=== PATIENT | male | born 1960 | race Caucasian/White ===

== ENCOUNTER 2020-11-09 06:36 | Day surgery (SDC) | payer OTHER ==
[2020-11-07 10:23] LABS: COVID AG,FIA SOURCE NASOPHARYNGEAL
[~2020-11-09] VITALS: Ht 170.2 cm; Wt 94.5 kg
[~2020-11-09 06:36] MED LIST: KETOROLAC TROMETHAMINE 0.5% 5 ML OPHTHALMIC SOLUTION ONE; MOXIFLOXACIN HCL 0.5% 3 ML OPHTHALMIC SOLUTION ONE; PHENYLEPHRINE HCL 2.5% 2 ML OPHTHALMIC SOLUTION ONE; RINGERS SOLUTION,LACTATED 500 ML IV ONE; SIMV-261 PO; TROPICAMIDE 1% 2 ML OPHTHALMIC SOLUTION ONE
[2020-11-09] MEDS ORDERED: LIDOCAINE/PF 1% 2 ML VIAL IM ONE (06:37)
[2020-11-09] MEDS ORDERED: CHONDR SULF A SOD/HYALURONATE 1.05 ML KIT IO ONE (06:37)
[2020-11-09] MEDS ORDERED: BALANCED SALT 15 ML OPHTHALMIC IRRIG.SOLN OD ONE (06:37)
[2020-11-09] MEDS ORDERED: POVIDONE-IODINE 10% 15 ML SOLUTION UD TP ONE (06:37)
[2020-11-09] MEDS ORDERED: EPINEPHrine 1:1,000 [1 MG/ML] AMP IM ONE (06:37)
[2020-11-09] MEDS ORDERED: HYALURONATE SOD/CHONDROITIN SOD 0.5 ML VIAL IO ONE (06:37)
[2020-11-09] MEDS ORDERED: TETRACAINE HCL/PF 0.5% 4 ML OPHTHALMIC SOLUTION OD ONE (06:37)
[2020-11-09] MEDS: PHENYLEPHRINE HCL 2.5% 2 ML OPHTHALMIC SOLUTION OD SCH ×3 (07:49→08:00)
[2020-11-09] MEDS: MOXIFLOXACIN HCL 0.5% 3 ML OPHTHALMIC SOLUTION OD SCH ×3 (07:49→08:00)
[2020-11-09] MEDS: TROPICAMIDE 1% 2 ML OPHTHALMIC SOLUTION OD SCH ×3 (07:49→08:00)
[2020-11-09] MEDS: KETOROLAC TROMETHAMINE 0.5% 5 ML OPHTHALMIC SOLUTION OD SCH ×3 (07:49→08:00)
[2020-11-09] MEDS ORDERED: MIDAZOLAM HCL 2 MG/2 ML VIAL IVP ONE (12:00)
[2020-11-09] MEDS ORDERED: FentaNYL CITRATE PF 100 MCG/2 ML VIAL IVP ONE (12:00)
== END 2020-11-09 09:30 | disposition home or self-care (01) ==
LOC: SURGERY 06:36
PROVIDERS: ATTEND Ophthalmology
DX: H25.11 Age-related nuclear cataract, right eye (principal); H40.1111 Primary open-angle glaucoma, right eye, mild stage; E78.5 Hyperlipidemia, unspecified; J45.909 Unspecified asthma, uncomplicated; I10 Essential (primary) hypertension; E78.00 Pure hypercholesterolemia, unspecified; Z98.890 Other specified postprocedural states; Z79.899 Other long term (current) drug therapy
CPT/HCPCS: 66984; 0191T; 87426; 93005; A9575; C9803; J0171; J2250; J3010; J3490; J7120; V2632